=== PATIENT | female | born 1980 | race Caucasian/White ===

== ENCOUNTER 2019-03-10 08:01 | Outpatient (CLI) | payer BC ==
--- NOTE | 2019-03-10 13:45 | NM ---
GASTRIC EMPTYING STUDY: HISTORY: Nausea. RADIOPHARMACEUTICAL: 2.1 mCi Technetium 99m sulfur colloid mixed in scrambled egg, p.o. FINDINGS: Sequential KAZ[facility] imaging of the abdomen is obtained immediately, at 30 minutes, and hourly up to 3 hour s. There is 65% emptying at 37 minutes, 78% emptying at 60 minutes, 97% emptying at 120 minutes, and 100 % emptying at 187 minutes. POS: [facility]
== END 2019-03-10 08:02 | disposition home or self-care (01) ==
LOC: NM 08:01
PROVIDERS: ATTEND Internal Medicine Gastroenterology
DX: R11.2 Nausea with vomiting, unspecified (principal)
CPT/HCPCS: 78264; A9541